=== PATIENT | male | born 1985 | race Caucasian/White ===

== ENCOUNTER 2016-10-21 01:06 | Emergency (ER) | payer SELFPAY ==
[~2016-10-21 01:06] MED LIST: AMOXICILLIN/CLAVULANATE POT 875/125 MG TAB PO SCH
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
[2016-10-21 08:06] VITALS: BP 122/74; PULSE 71; RESP 18; TEMP 97.9; O2SAT 93
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
== END 2016-10-21 05:15 | disposition home or self-care (01) ==
LOC: EDUNIT#
DX: S02.82XA Fracture of other specified skull and facial bones, left side, initial encounter for closed fracture (principal); S83.91XA Sprain of unspecified site of right knee, initial encounter; F10.120 Alcohol abuse with intoxication, uncomplicated; F17.200 Nicotine dependence, unspecified, uncomplicated; Y04.8XXA Assault by other bodily force, initial encounter; Y92.89 Other specified places as the place of occurrence of the external cause
CPT/HCPCS: L1830